=== PATIENT | female | born 1990 | race Caucasian/White ===

== ENCOUNTER 2020-10-19 10:47 | Outpatient (REF) | payer OTHER, SELFPAY ==
--- NOTE | 2020-10-19 08:45 | PAPFT_PTH ---
PATIENT: Julia Agarwal LOC: [facility] U#:[id number] AGE/SX: 30/F ROOM: RE10/19/[address]: TIRSO Westfall : 1990 BED: DIS: 10/19/2020 SPEC #: [id number] RECD: 10/19/20 13:14 STATUS: ALMA REJudson #: [id number] NEIL: 10/19/20 08:[address]: Jazzy Horne DEPT: [facility] Cytology RECD BY: Annika Mai Tissues: 1 - CX/ENDOCX FOR PAP SMEARS Procedures: PAP THIN PREP/[facility] Screening Comments: [id number] (CHLAMYDIA/GC)
[2020-10-20 15:28] LABS: Chlamydia Result Negative (Negative); GC Result Negative (Negative)
== END 2020-10-19 10:48 | disposition home or self-care (01) ==
LOC: LBN 10:47
PROVIDERS: PCP Nurse Practitioner Family; Visit Provider Nurse Practitioner Family
DX: Z11.3 Encounter for screening for infections with a predominantly sexual mode of transmission (principal); Z12.4 Encounter for screening for malignant neoplasm of cervix
CPT/HCPCS: 87491; 87591; 88142

== ENCOUNTER 2020-10-24 02:16 | Outpatient (CLI) | payer OTHER, SELFPAY ==
[2020-10-24 13:00] LABS: Anion Gap 13.2 mmol/L (3-11); BUN 13 mg/dL (7-18); CO2 23.8 mmol/L (21.0-32.0); CREATININE 0.9 mg/dL (0.55-1.02); Calculated LDL 145 mg/dL (<100); Chloride 102 mmol/L (98-107); Cholesterol 244 mg/dL (<200); Glucose 79 mg/dL (74-106); HDL Cholesterol 76 mg/dL (40-60); Potassium 4.1 mmol/L (3.5-5.1); Sodium 139 mmol/L (136-145); Triglyceride 115 mg/dL (<150)
[2020-10-24 13:03] LABS: Hemoglobin A1C 5.2 % (<5.7)
[2020-10-31 14:17] LABS: FACV Specimen Whole Blood
== END 2020-10-24 02:17 | disposition home or self-care (01) ==
LOC: LOS 02:17
PROVIDERS: PCP Nurse Practitioner Family; Visit Provider Nurse Practitioner Family
DX: Z00.00 Encounter for general adult medical examination without abnormal findings (principal); E66.9 Obesity, unspecified; Z83.2 Family history of diseases of the blood and blood-forming organs and certain disorders involving the immune mechanism
CPT/HCPCS: 36415; 80048; 80061; 81241; 83036

== ENCOUNTER 2021-10-22 18:47 | Outpatient (REF) | payer OTHER, SELFPAY ==
[2021-10-24 12:29] LABS: Chlamydia Result Negative (Negative); GC Result Negative (Negative)
== END 2021-10-22 18:48 | disposition home or self-care (01) ==
LOC: LBN 18:47
PROVIDERS: PCP Nurse Practitioner Family; Visit Provider Nurse Practitioner Family
DX: Z11.3 Encounter for screening for infections with a predominantly sexual mode of transmission (principal)
CPT/HCPCS: 87491; 87591

== ENCOUNTER 2023-10-24 13:00 | Outpatient (REF) | payer OTHER, SELFPAY ==
--- NOTE | 2023-10-24 13:00 | PAPFT_PTH ---
PATIENT: Julia Agarwal LOC: [facility] U#:[id number] AGE/SX: 33/F ROOM: RE10/24/[address]: TIRSO Westfall : 1990 BED: DIS: 10/24/2023 SPEC #: [id number] RECD: 10/27/23 12:52 STATUS: ALMA REJudson #: [id number] NEIL: 10/24/23 13:[address]: Jazzy Horne DEPT: [facility] Cytology RECD BY: Annika Mai Tissues: 1 - CX/ENDOCX FOR PAP SMEARS Procedures: PAP THIN PREP/[facility] Screening HPV DNA PROBE Comments: [id number] (CHLAMYDIA/GC)
[2023-10-28 12:37] LABS: Chlamydia Result Negative (Negative); GC Result Negative (Negative)
== END 2023-10-24 13:01 | disposition home or self-care (01) ==
LOC: LBN 13:00
PROVIDERS: PCP Nurse Practitioner Family; Visit Provider Nurse Practitioner Family
DX: Z12.4 Encounter for screening for malignant neoplasm of cervix (principal); Z11.51 Encounter for screening for human papillomavirus (HPV); Z11.3 Encounter for screening for infections with a predominantly sexual mode of transmission
CPT/HCPCS: 87491; 87591; 88142; 87624

== ENCOUNTER 2023-11-25 13:24 | Outpatient (CLI) | payer OTHER, SELFPAY ==
[2023-11-25 22:44] LABS: Hepatitis C Ab w Rflx HCV PCR Negative (Negative)
[2023-11-25 23:17] LABS: HIV-1/2 Ag & Ab Screen Negative (Negative)
== END 2023-11-25 13:25 | disposition home or self-care (01) ==
LOC: LBO 13:24
PROVIDERS: PCP Nurse Practitioner Family; Visit Provider Nurse Practitioner Family
DX: Z11.3 Encounter for screening for infections with a predominantly sexual mode of transmission (principal); Z11.4 Encounter for screening for human immunodeficiency virus [HIV]
CPT/HCPCS: 36415; 86803; 87389

== ENCOUNTER 2024-04-06 17:57 | Outpatient (REF) | payer OTHER, SELFPAY ==
[2024-04-08 12:15] LABS: Chlamydia Result Negative (Negative); GC Result Negative (Negative)
== END 2024-04-06 17:58 | disposition home or self-care (01) ==
LOC: LBN 17:57
PROVIDERS: PCP Nurse Practitioner Family; Visit Provider Family Medicine
DX: B37.31 Acute candidiasis of vulva and vagina (principal); N93.0 Postcoital and contact bleeding; Z20.2 Contact with and (suspected) exposure to infections with a predominantly sexual mode of transmission
CPT/HCPCS: 87491; 87591; 87480; 87510; 87660